=== PATIENT | female | born 1990 | race Caucasian/White ===

== ENCOUNTER 2021-01-31 15:15 | Emergency (ER) | payer SELFPAY | END 2021-01-31 19:18 | disposition home or self-care (01) | LOC: CSHERS 15:15 | DX: S39.012A Strain of muscle, fascia and tendon of lower back, initial encounter (principal); S90.02XA Contusion of left ankle, initial encounter; R20.2 Paresthesia of skin; Y04.0XXA Assault by unarmed brawl or fight, initial encounter | CPT/HCPCS: 72100 ==

== ENCOUNTER 2021-02-11 17:08 | Emergency (ER) | payer SELFPAY | END 2021-02-11 17:57 | disposition home or self-care (01) | LOC: CSHERS 17:08 | DX: J00 Acute nasopharyngitis [common cold] (principal); K02.9 Dental caries, unspecified; G43.909 Migraine, unspecified, not intractable, without status migrainosus; Z87.891 Personal history of nicotine dependence | CPT/HCPCS: 99283 ==

== ENCOUNTER 2021-07-23 19:54 | Emergency (ER) | payer SELFPAY | END 2021-07-23 20:22 | disposition home or self-care (01) | LOC: CSHERS 19:54 | DX: R19.7 Diarrhea, unspecified (principal); R11.10 Vomiting, unspecified | CPT/HCPCS: 99283 ==

== ENCOUNTER 2022-04-12 13:46 | Emergency (ER) | payer SELFPAY ==
[2022-04-12] MEDS ORDERED: Ketorolac Tromethamine 30 MG/ML VIAL ONE (16:46)
[2022-04-12] MEDS ORDERED: Dexamethasone 10 MG/ML VIAL ONE (16:46)
== END 2022-04-12 16:55 | disposition home or self-care (01) ==
LOC: CSHERS 13:46
DX: M54.42 Lumbago with sciatica, left side (principal); S33.5XXA Sprain of ligaments of lumbar spine, initial encounter; S93.602A Unspecified sprain of left foot, initial encounter; F17.200 Nicotine dependence, unspecified, uncomplicated; W10.8XXA Fall (on) (from) other stairs and steps, initial encounter
CPT/HCPCS: 96372; 99283; J1100; J1885

== ENCOUNTER 2023-11-22 14:03 | Emergency (ER) | payer BC, SELFPAY ==
[2023-11-22] MEDS ORDERED: Ondansetron PF 4 MG/2 ML Vial ONE (14:24)
[2023-11-22 14:40] LABS: Bilirubin Neg (Negative); Blood, Urine Negative (Negative); Clarity Slightly Cloudy (Clear); Glucose, Urine (Dipstick) Normal (Negative); Ketone, Urine 5 mg/dL (Negative); Leukocyte 500 (Negative); Nitrite Negative (Negative); Protein, Urine (Dipstick) 15 mg/dl (Neg-Trace); Urobilinogen Normal mg/dL (Less than 2)
[2023-11-22 14:41] LABS: Pregnancy Test - Urine (BHCG) Negative (Negative); Pregu Control Background? CLEAR/WHITE (CLR/WHITE); Pregu Control Bar Appear? YES (CONTROL BAR)
[2023-11-22 14:46] LABS: #Basophils 0.08 10x3/uL (0.0-0.2); #Eosinphils 0.31 10x3/uL (0.0-0.5); #Monocytes 0.58 10x3/uL (0.0-1.1); #Neutrophils 7.57 10x3/uL (1.5-8.4); %Basophils 0.8 % (0.0-2.0); %Eosinophils 2.9 % (0.0-6.0); %Monocytes 5.5 % (0.0-10.0); %Neutrophils 71.3 % (40.0-75.0); Hematocrit 40.7 % (34.9-44.5); Hemoglobin 13.3 g/dL (12.0-15.5); Mean Corpuscular HGB CONC 32.7 g/dL (32.0-36.0); Mean Corpuscular Hemoglobin 26.8 pg (27.0-33.0); Mean Corpuscular Volume 81.9 fL (81.6-98.3); Platelet Count 324 10x3/uL (150-450); RBC Distribution Width 13.2 % (11.5-14.5); Red Blood Cell (RBC) Count 4.97 10x6/uL (3.90-5.03); White Blood Cell (WBC) Count 10.6 10x3/uL (3.5-10.5)
[2023-11-22 14:57] LABS: ALT (SGPT) 12 U/L (8-55); AST (SGOT) 16 U/L (5-34); Albumin 3.8 g/dL (3.5-5.0); Alkaline Phosphatase 64 U/L (40-110); Anion Gap 11 mmol/L (10-20); BUN (Urea Nitrogen) 11 mg/dL (7.0-18.7); Bilirubin, Total 0.7 mg/dL (0.2-1.2); Calc. Creatinine Clearance 0 mL/min (70-130); Calcium 9.1 mg/dL (7.8-10.44); Carbon Dioxide 25 mmol/L (22-29); Chloride 103 mmol/L (98-107); Estimated GFR 97; Glucose 80 mg/dL (70-105); Potassium 3.9 mmol/L (3.5-5.1); Protein, Total 6.8 g/dL (6.0-8.3); Sodium 135 mmol/L (136-145)
[2023-11-22 15:06] LABS: Bacteria/HPF None Seen HPF (None Seen); CAUTI Indications for Culture Pelvic or flank pain; RBC/HPF None Seen HPF (0-3)
[2023-11-22 15:08] LABS: Urine Culture Reflex No No
[2023-11-22] MEDS ORDERED: Ketorolac Tromethamine 30 MG (1 mL) VIAL ONE (15:35)
== END 2023-11-22 16:50 | disposition home or self-care (01) ==
LOC: CSHERS 14:03
DX: E86.0 Dehydration (principal); R11.2 Nausea with vomiting, unspecified; R19.7 Diarrhea, unspecified; F17.290 Nicotine dependence, other tobacco product, uncomplicated
CPT/HCPCS: 80053; 81001; 81025; 85025; 87428; 96374; 96375; J1885; J2405

== ENCOUNTER 2023-12-20 18:36 | Emergency (ER) | payer BC | END 2023-12-20 19:30 | disposition home or self-care (01) | LOC: CSHERS 18:36 | DX: M54.41 Lumbago with sciatica, right side (principal); K64.4 Residual hemorrhoidal skin tags; F17.290 Nicotine dependence, other tobacco product, uncomplicated | CPT/HCPCS: 99283 ==

== ENCOUNTER 2024-01-03 11:15 | Emergency (ER) | payer BC | END 2024-01-03 12:45 | disposition home or self-care (01) | LOC: CSHERS 11:15 | DX: S80.01XA Contusion of right knee, initial encounter (principal); F17.290 Nicotine dependence, other tobacco product, uncomplicated; W01.10XA Fall on same level from slipping, tripping and stumbling with subsequent striking against unspecified object, initial encounter | CPT/HCPCS: 99283 ==

== ENCOUNTER → 2024-01-14 | Emergency (ER) | payer BC | LOC: CSHERS 13:26 | DX: A08.4 Viral intestinal infection, unspecified (principal); F17.290 Nicotine dependence, other tobacco product, uncomplicated; Z55.0 Illiteracy and low-level literacy | CPT/HCPCS: 99283 ==

== ENCOUNTER 2024-01-23 16:19 | Emergency (ER) | payer BC ==
[2024-01-23 17:13] LABS: #Basophils 0.06 10x3/uL (0.0-0.2); #Eosinophils 0.14 10x3/uL (0.0-0.5); #Monocytes 0.57 10x3/uL (0.0-1.1); #Neutrophils 6.04 10x3/uL (1.5-8.4); %Basophils 0.8 % (0.0-2.0); %Eosinophils 1.8 % (0.0-6.0); %Lymphocytes 11.7 % (18.0-47.0); %Monocytes 7.3 % (0.0-10.0); %Neutrophils 77.9 % (40.0-75.0); Hematocrit 41.3 % (34.9-44.5); Hemoglobin 13.7 g/dL (12.0-15.5); Mean Corpuscular HGB CONC 33.2 g/dL (32.0-36.0); Mean Corpuscular Hemoglobin 27.1 pg (27.0-33.0); Mean Corpuscular Volume 81.8 fL (81.6-98.3); Mean Platelet Volume 11.3 fL (7.4-10.4); Platelet Count 280 10x3/uL (150-450); RBC Distribution Width 13.3 % (11.5-14.5); Red Blood Cell (RBC) Count 5.05 10x6/uL (3.90-5.03); White Blood Cell (WBC) Count 7.8 10x3/uL (3.5-10.5)
[2024-01-23 17:24] LABS: ALT (SGPT) 12 U/L (8-55); AST (SGOT) 15 U/L (5-34); Albumin 3.6 g/dL (3.5-5.0); Alkaline Phosphatase 69 U/L (40-110); Anion Gap 13 mmol/L (10-20); BUN (Urea Nitrogen) 6 mg/dL (7.0-18.7); Bilirubin, Total 0.3 mg/dL (0.2-1.2); Calc. Creatinine Clearance 0 mL/min (70-130); Calcium 9.2 mg/dL (7.8-10.44); Carbon Dioxide 21 mmol/L (22-29); Chloride 106 mmol/L (98-107); Estimated GFR 103; Globulin 3.1 g/dL (2.4-3.5); Glucose 94 mg/dL (70-105); Potassium 3.9 mmol/L (3.5-5.1); Protein, Total 6.7 g/dL (6.0-8.3); Sodium 136 mmol/L (136-145)
[2024-01-23 17:29] LABS: Troponin I 0.019 ng/mL (< 0.028)
[2024-01-23 19:13] LABS: Pregnancy Test - Urine (BHCG) Negative (Negative)
[2024-01-23 19:14] LABS: Pregu Control Background? CLEAR/WHITE (CLR/WHITE); Pregu Control Bar Appear? YES (CONTROL BAR)
[2024-01-23] MEDS ORDERED: Acetaminophen 325 MG TAB ONE (19:27)
[2024-01-23] MEDS ORDERED: Magnesium Oxide 400 MG TAB PO SCH (19:45)
== END 2024-01-23 19:42 | disposition home or self-care (01) ==
LOC: CSHERS 16:19
DX: F41.9 Anxiety disorder, unspecified (principal); R56.9 Unspecified convulsions; R29.700 NIHSS score 0; F17.210 Nicotine dependence, cigarettes, uncomplicated; F17.290 Nicotine dependence, other tobacco product, uncomplicated
CPT/HCPCS: 71045; 80053; 81025; 84484; 85025; 93005

== ENCOUNTER 2024-02-17 18:03 | Emergency (ER) | payer BC ==
[2024-02-17] MEDS ORDERED: Dexamethasone 10 MG/ML VIAL ONE (19:30)
[2024-02-17] MEDS ORDERED: Benzonatate 100 MG CAP ONE (19:30)
[2024-02-17] MEDS ORDERED: Ketorolac Tromethamine 30 MG (1 mL) VIAL ONE (19:30)
== END 2024-02-17 19:50 | disposition home or self-care (01) ==
LOC: CSHERS 18:03
DX: J06.9 Acute upper respiratory infection, unspecified (principal); F17.290 Nicotine dependence, other tobacco product, uncomplicated
CPT/HCPCS: 87428; 96372; J1100; J1885

== ENCOUNTER 2024-02-20 17:44 | Emergency (ER) | payer BC ==
[2024-02-20] MEDS ORDERED: Ketorolac Tromethamine 30 MG (1 mL) VIAL ONE (18:33)
[2024-02-20] MEDS ORDERED: Ipratropium/Albuterol 3 ML NEB ONE (18:35)
== END 2024-02-20 19:40 | disposition home or self-care (01) ==
LOC: CSHERS 17:44
DX: J11.1 Influenza due to unidentified influenza virus with other respiratory manifestations (principal); R06.2 Wheezing; F17.210 Nicotine dependence, cigarettes, uncomplicated; F17.290 Nicotine dependence, other tobacco product, uncomplicated
CPT/HCPCS: 71045; 94760; 96372; J1885; J7620

== ENCOUNTER 2024-12-22 12:13 | Emergency (ER) | payer BC, SELFPAY | END 2024-12-22 14:08 | LOC: CSHERS 12:13 | DX: J06.9 Acute upper respiratory infection, unspecified (principal); F17.210 Nicotine dependence, cigarettes, uncomplicated | CPT/HCPCS: 71045; 87428; 99284 ==